=== PATIENT | female | born 2000 | race Caucasian/White ===

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

== ENCOUNTER 2019-03-05 18:22 | Emergency (ER) | payer MEDICAID ==
[~2019-03-05] VITALS: Ht 160 cm; Wt 64.9 kg
[2019-03-05 18:25] VITALS: Ht 160 cm; Wt 64.9 kg
[2019-03-05 20:47] VITALS: BP 95/56
== END 2019-03-05 20:47 | disposition home or self-care (01) ==
LOC: ED 18:22
DX: R33.0 Drug induced retention of urine (principal); N89.8 Other specified noninflammatory disorders of vagina; R35.0 Frequency of micturition; R10.30 Lower abdominal pain, unspecified; J45.909 Unspecified asthma, uncomplicated; Z11.3 Encounter for screening for infections with a predominantly sexual mode of transmission
CPT/HCPCS: 87491; 87591; J0696

== ENCOUNTER 2019-04-25 22:45 | Emergency (ER) | payer MEDICAID ==
[~2019-04-25] VITALS: Ht 160 cm; Wt 65.8 kg
[2019-04-25 22:56] VITALS: BP 104/51; Ht 160 cm; Wt 65.8 kg
== END 2019-04-26 01:21 | disposition left against medical advice (07) ==
LOC: ED 22:45
DX: Z53.21 Procedure and treatment not carried out due to patient leaving prior to being seen by health care provider (principal)

== ENCOUNTER 2019-08-08 01:25 | Emergency (ER) | payer MEDICAID ==
[~2019-08-08] VITALS: Ht 160 cm; Wt 64.5 kg
[2019-08-08 01:33] VITALS: Ht 160 cm; Wt 64.5 kg
[2019-08-08 03:21] VITALS: BP 102/43
== END 2019-08-08 03:21 | disposition home or self-care (01) ==
LOC: ED 01:25
DX: N76.0 Acute vaginitis (principal); J45.909 Unspecified asthma, uncomplicated
CPT/HCPCS: 87491; 87591; J0696